=== PATIENT | female | born 1990 | race Asian ===

== ENCOUNTER 2018-01-21 13:03 | Emergency (ER) | payer OTHER ==
[~2018-01-21] VITALS: Ht 152.4 cm; Wt 49.9 kg
[2018-01-21] MEDS ORDERED: IMODIUM A-D2 MG (13:12)
== END 2018-01-21 15:37 | disposition home or self-care (01) ==
LOC: ER 13:03
DX: K52.89 Other specified noninfective gastroenteritis and colitis (principal)